=== PATIENT | male | born 1965 | race Caucasian/White ===

== ENCOUNTER → 2023-09-07 12:54 | Outpatient (REF) | payer OTHER, SELFPAY | LOC: RAD 12:54 | PROVIDERS: ATTENDING PHYSICIAN Physician Assistant Medical; FAMILY PHYSICIAN Physician Assistant | DX: C25.1 Malignant neoplasm of body of pancreas (principal) | CPT/HCPCS: 71260; 74178; Q9967 ==

== ENCOUNTER 2023-10-09 12:25 | Emergency (ER) | payer OTHER, SELFPAY ==
[2023-10-09] VITALS (9 sets, daily range): BP systolic 117–188; BP diastolic 70–92; BMI 29.5
--- NOTE | 2023-10-09 13:37 | ED.GENMED ---
History of Present Illness
General
Chief Complaint: Abnormal Lab Value
Source: patient
Exam Limitations: none
Time Seen by Provider: 10/09/23 13:36
Nursing documentation reviewed up to this point in time: agreed with
Travel History
Have you had any contact with someone who has COVID-19?: No
Do you have any symptoms of coronavirus? Fever > 100 degrees, chills, cough, shortness of breath, sore throat, loss of taste or smell, muscle aches, or headache?: No
History of Present Illness
History of Present Illness:
58 yo male pancreatic Ca, on chemotherapy, oxaliplatin, 5-FU, Irinotecan, followed at [facility]. Last chemo 09/28, next due 10/12.
Pt here for GI bleeding. Flew to [place] 5 days ago
4 days ago had BM, formed mixed with blood. Went golfing and felt dizzy during game, at dinner dizziness worse, passed out,
3 days ago another bloody stool with clots, called EMS, went to hospital and Hgb 6.3. Had 2 Units PRBCs and Hgb 8.5
2 days ago had colonoscopy and endoscopy, both unremarkable per pt and . Lots of blood expelled with the bowel prep. GI in [facility] recommended camera study but pt and decided to come back home to Dr. Echevarria
Pt has had no bleeding since colonoscopy, has had normal BM.
Has appointment with Dr. Laws 2 days but he wanted him to come to ED and have Hgb checked.
Pt denies abdominal pain, no further bleeding, does feel dizzy and lightheaded, denies CP or SOB, denies fever/chills.
Medications:
Chemo: Oxyplatin, Irinotecan, 5 FU
Vit D
Duloxetine
Ziextenzo 0.6 q 14 days (Neulasta)
Past History
Past History
ED Past Medical History: Cancer (Pancreatic cancer) and GERD
ED Past Surgical History: Orthopedic
Social History
Tobacco: Non-smoker
Alcohol: Occasional
Drug: None
Personal:
Living: with family
Employment: Employed
Review of Systems
Review of Systems
Allergies reviewed?: Yes
All Other Systems: ROS reviewed and negative except as documented in HPI and ROS
Constitutional: Denies fever
Respiratory: Denies trouble breathing
Cardiac: Denies chest pain or palpitations
ABD/GI: Reports bloody stools; Denies abdominal pain, nausea, vomiting or diarrhea
: Denies dysuria, difficulty voiding or urgency
Musculoskeletal: Reports no symptoms
Skin: Reports no symptoms
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
Phy Exam
Physical Exam
Physical Exam:
GENERAL: No acute distress. A&Ox3.
CONSTITUTIONAL: Afebrile.
EYES: PERRL, conjunctivae normal
ENMT: moist mucus membranes, Pharynx nl
RESPIRATORY: Regular respirations, nonlabored, lungs clear.
CARDIOVASCULAR: Regular rate and rhythm, no murmurs, no rubs.
GI: Soft, nontender, normal BS
Rectal: No stool in rectal vault: clear mucus hematest neg
MUSCULOSKELETAL: Moves with ease. Well perfused.
SKIN: Warm, dry, pink. Port upper right chest wall
PSYCH: Normal mood and affect. Well kept, interactive and appropriate
NEUROLOGIC: Awake, alert and oriented. No focal neurological deficits
Course
Orders/Labs/Results
Orders:
Orders
10/09/23 14:36
Type+Screen Urgent
Complete Blood Count/With Diff Urgent
Comprehensive Metabolic Panel Urgent
10/09/23 15:20
* Blood Bank Products Urgent
Blood Bank Products: *Packed RBC Leuko(PRBC's)
Quantity: 1
Transfuse Today: Yes
Reason: Anemia
Other reason: recent rectal bleeding
IV Insert/Care/Rem.- Treatment PRN
Abnormal Lab Results
10/09/23
14:36
RBC 2.26 L 10^6/uL
(4.70-6.10)
Hgb 7.2 L g/dL
(13.0-18.0)
Hct 21.6 L %
(39.0-52.0)
MCV 95.6 H fL
(80.0-94.0)
MCH 31.9 H pg
(27.0-31.0)
RDW 17.9 H %
(11.5-14.5)
Abs Immat Gran (auto) 0.1 H 10^3/uL
(0-0.05)
Absolute Lymphs (auto) 0.5 L 10^3/uL
(1.2-3.4)
Absolute Monos (auto) 1.1 H 10^3/uL
(0.1-0.6)
Immature Gran % 1.3 H %
(0-0.5)
Lymphocytes % 9.0 L %
(20.5-51.1)
Monocytes % 18.6 H %
(1.7-9.3)
Potassium 3.4 L mmol/L
(3.5-5.1)
Creatinine 0.6 L mg/dL
(0.7-1.3)
Glucose 159 H mg/dl
(70-99)
Alkaline Phosphatase 161 H U/L
(38-126)
Total Protein 5.9 L g/dl
(6.3-8.2)
Crossmatch IS Only See Detail
10/09/23 14:36
10/09/23 14:36
Vital Signs
Initial and Last Documented VS:
Initial Vital Signs
Temp Pulse Resp BP Pulse Ox
99.1 F 100 18 132/73 93
10/09/23 12:32 10/09/23 12:32 10/09/23 12:32 10/09/23 12:32 10/09/23 12:32
Last Documented Vital Signs
Temp Pulse Resp BP Pulse Ox
98.0 F 84 16 188/78 100
10/09/23 19:51 10/09/23 19:51 10/09/23 19:51 10/09/23 19:51 10/09/23 19:51
Dye House Wheel Operator consulted with Physician
Dye House Wheel Operator consulted with physician?: Yes
Name of Physician Consulted: Evelyne
MDM/Problems Addressed
Differential Diagnosis Includes:
anemia, GI bleed
MDM/Problems Addressed:
58 yo male pancreatic Ca, on chemotherapy, oxaliplatin, 5-FU, Irinotecan, followed at [facility]. Last chemo 09/28, next due 10/12.
Pt here for GI bleeding. Flew to [facility] 5 days ago
4 days ago had BM, formed mixed with blood. Went golfing and felt dizzy during game, at dinner dizziness worse, passed out,
3 days ago another bloody stool with clots, called EMS, went to hospital and Hgb 6.3. Had 2 Units PRBCs and Hgb 8.5
2 days ago had colonoscopy and endoscopy, both unremarkable per pt and . Lots of blood expelled with the bowel prep. GI in [facility] recommended camera study but pt and decided to come back home to Dr. Echevarria
Pt has had no bleeding since colonoscopy, has had normal BM.
Has appointment with Dr. Laws 2 days but he wanted him to come to ED and have Hgb checked.
Pt denies abdominal pain, no further bleeding, does feel dizzy and lightheaded, denies CP or SOB, denies fever/chills.
3:21 PM hemoglobin 7.2.
Case discussed with Dr. La, GI who agrees transfuse 1UPRBC's since pt does feel lightheaded and dizzy and he requests it as he felt so much better after last transfusion
Case discussed with Dr. Stubbs.
4:59 PM
Blood consent signed and scanned into chart
Case discussed with Navneet FLYNN who will assume care from this point, barring any reaction to the blood products, he may be discharged as soon as the blood has infused
Chronic conditions affecting care: Cancer (pancreatic)
*Critical Care Note
Total Time (30-74mins, 75-104mins- exclusive of procedures): Not Applicable
ED Attending Note
-
Portions of this chart may have been created with voice recognition software.� Occasional wrong word or��sound alike� substitutions may have occurred due to the inherent limitations of voice recognition software.
Discharge Plan
Departure
Patient Disposition: Home (Routine Discharge)
Date of Disposition: 10/09/23
Time of Disposition: 19:47
Patient with high blood pressure during this ER visit?: No
Condition: Good
Discharge Problem:
GI (gastrointestinal bleed), Transfusion of blood during current hospitalisation
Instructions: Gastrointestinal Bleeding (DC)
Prescriptions:
No Action
calcium carbonate [Tums 500] 500 mg calcium (1,250 mg) Tablet,Chewable
2,000 mg PO DAILY PRN (Reason: stomach issues)
duloxetine 30 mg capsule,delayed release(DR/EC)
30 mg PO DAILY
cholecalciferol (vitamin D3) 125 mcg (5,000 unit) Tablet
125 mcg PO DAILY
Creon 36,000-114,000- 180,000 unit Capsule,Delayed Release(Dr/Ec)
1 cap PO AC PRN (Reason: small meals)
Creon 36,000-114,000- 180,000 unit capsule,delayed release(DR/EC)
2 cap PO AC PRN (Reason: large meals)
Referrals:
Froylan Echevarria MD [Active] - Keep scheduled appt
Franchesca Lindsey PA-C [Family Provider] -
Activity Restrictions/Additional Instructions:
As we discussed, keep your appointment with Dr. Echevarria in 2 days.
Interventions
Interventions:
*Risk Screen - Suicide Last Done: 10/09/23 17:17
*General Assessment Last Done: 10/09/23 14:37
*Neglect/Abuse Screening Last Done: 10/09/23 14:37
ED- Fall Risk Assessment Last Done: 10/09/23 14:37
*ED COVID-19 Vaccine History Last Done: 10/09/23 18:08
*Nursing Disposition Last Done: 10/09/23 19:57
Discharge Date and Time
Discharge Date/Time: 10/09/23 20:06
Print Language: [email or web address]
[2023-10-09 14:52] LABS: % Basophils 0.7 % (0-2); % Eosinophils 1.8 % (0-6); % Immature Granulocytes 1.3 % (0-0.5); % Monocytes 18.6 % (1.7-9.3); % Neutrophils 68.6 % (42.2-75.2); Absolute Eosinophils 0.1 10^3/uL (0-0.7); Absolute Immature Granulocytes 0.1 10^3/uL (0-0.05); Absolute Lymphocytes 0.5 10^3/uL (1.2-3.4); Absolute Monocytes 1.1 10^3/uL (0.1-0.6); Absolute Neutrophils 4.1 10^3/uL (1.4-6.5); Hematocrit 21.6 % (39.0-52.0); Hemoglobin 7.2 g/dL (13.0-18.0); Mean Corp Hgb Conc. 33.3 g/dL (33.0-37.0); Mean Corpuscular Hgb 31.9 pg (27.0-31.0); Mean Corpuscular Volume 95.6 fL (80.0-94.0); Nucleated Red Blood Cells % 0 % (-); Platelet Count 157 10^3/uL (130-400); Red Blood Cell Count 2.26 10^6/uL (4.70-6.10); Red Cell Dist. Width 17.9 % (11.5-14.5)
[2023-10-09 15:02] LABS: Potassium 3.4 mmol/L (3.5-5.1)
[2023-10-09 15:03] LABS: ALT (SGPT) 29 U/L (0-50); AST (SGOT) 31 U/L (17-59); Albumin 3.5 g/dl (3.5-5.0); Alkaline Phosphatase 161 U/L (38-126); Blood Urea Nitrogen 12 mg/dl (9-20); Calcium 8.6 mg/dl (8.4-10.2); Carbon Dioxide 26 mmol/L (22-30); Chloride 101 mmol/L (98-107); Glucose 159 mg/dl (70-99); Sodium 136 mmol/L (135-145); Total Bilirubin 0.3 mg/dl (0.2-1.3); Total Protein 5.9 g/dl (6.3-8.2); eGFR > 60.00
== END 2023-10-09 20:06 | disposition home or self-care (01) ==
LOC: EMR 12:25
PROVIDERS: Registered Nurse; EMERGENCY PHYSICIAN Emergency Medicine; FAMILY PHYSICIAN Physician Assistant
DX: K92.2 Gastrointestinal hemorrhage, unspecified (principal); C25.9 Malignant neoplasm of pancreas, unspecified
CPT/HCPCS: 99285; 36430; 80053; 85025; 86850; 86900; 86901; 86920; P9016

== ENCOUNTER → 2023-12-05 08:11 | Outpatient (REF) | payer OTHER, SELFPAY | LOC: RAD 08:11 | PROVIDERS: ATTENDING PHYSICIAN Internal Medicine Medical Oncology | DX: C25.8 Malignant neoplasm of overlapping sites of pancreas (principal) | CPT/HCPCS: 71260; 74177; Q9967 ==

== ENCOUNTER → 2023-12-27 06:16 | Day surgery (SDC) | payer OTHER, SELFPAY | LOC: GI 06:16 | PROVIDERS: ATTENDING PHYSICIAN Specialist | DX: K31.89 Other diseases of stomach and duodenum (principal); K25.3 Acute gastric ulcer without hemorrhage or perforation; K26.0 Acute duodenal ulcer with hemorrhage | CPT/HCPCS: 43239; 88305; 88342 ==

== ENCOUNTER → 2024-02-27 08:30 | Outpatient (REF) | payer OTHER, SELFPAY | LOC: RAD 08:30 | PROVIDERS: ATTENDING PHYSICIAN Physician Assistant Medical; FAMILY PHYSICIAN Physician Assistant | DX: C25.8 Malignant neoplasm of overlapping sites of pancreas (principal) | CPT/HCPCS: 71260; 74177; Q9967 ==

== ENCOUNTER → 2024-06-05 06:37 | Outpatient (REF) | payer OTHER, SELFPAY | LOC: RAD 06:37 | PROVIDERS: ATTENDING PHYSICIAN Physician Assistant Medical; FAMILY PHYSICIAN Physician Assistant | DX: C25.1 Malignant neoplasm of body of pancreas (principal) | CPT/HCPCS: 71260; 74178; Q9967 ==

== ENCOUNTER → 2024-06-12 14:33 | Outpatient (REF) | payer OTHER, SELFPAY | LOC: MRI 14:33 | PROVIDERS: ATTENDING PHYSICIAN Physician Assistant Medical; FAMILY PHYSICIAN Physician Assistant | DX: C25.1 Malignant neoplasm of body of pancreas (principal) | CPT/HCPCS: 74183; A9575 ==

== ENCOUNTER → 2024-08-21 14:05 | Outpatient (REF) | payer OTHER, SELFPAY | LOC: DHSLP 14:05 | PROVIDERS: ATTENDING PHYSICIAN Internal Medicine Critical Care Medicine; FAMILY PHYSICIAN Physician Assistant | DX: G47.30 Sleep apnea, unspecified (principal); R06.83 Snoring | CPT/HCPCS: 95800 ==

== ENCOUNTER → 2024-09-18 07:22 | Outpatient (REF) | payer OTHER, SELFPAY | LOC: RAD 07:22 | PROVIDERS: ATTENDING PHYSICIAN Physician Assistant Medical; FAMILY PHYSICIAN Physician Assistant | DX: C25.1 Malignant neoplasm of body of pancreas (principal) | CPT/HCPCS: 71260; 74178; Q9967 ==

== ENCOUNTER → 2025-04-14 09:09 | Outpatient (REF) | payer OTHER, SELFPAY ==
[2025-04-14 09:55] LABS: Hematocrit 37.5 % (39.0-52.0); Hemoglobin 12.3 g/dL (13.0-18.0); Mean Corp Hgb Conc. 32.8 g/dL (33.0-37.0); Mean Corpuscular Volume 82.6 fL (80.0-94.0); Platelet Count 220 10^3/uL (130-400); Red Cell Dist. Width 19.4 % (11.5-14.5)
[2025-04-14 11:19] LABS: ALT (SGPT) 25 U/L (0-50); AST (SGOT) 21 U/L (17-59); Albumin 4.5 g/dl (3.5-5.0); Alkaline Phosphatase 168 U/L (38-126); Blood Urea Nitrogen 13 mg/dl (9-20); Calcium 9.0 mg/dl (8.4-10.2); Carbon Dioxide 26 mmol/L (22-30); Chloride 102 mmol/L (98-107); Glucose 125 mg/dl (70-99); Potassium 4.2 mmol/L (3.5-5.1); Sodium 137 mmol/L (135-145); Total Protein 7.2 g/dl (6.3-8.2); eGFR > 60.00
[2025-04-14 12:19] LABS: Nucleated Red Blood Cells % 0 % (-)
[2025-04-16 14:58] LABS: CA 19-9 322 U/mL (<=35)
== END ==
LOC: REG 09:09
PROVIDERS: ATTENDING PHYSICIAN Physician Assistant Medical
DX: C25.8 Malignant neoplasm of overlapping sites of pancreas (principal)
CPT/HCPCS: 36415; 80053; 85025; 86301